=== PATIENT | male | born 1960 | race African-American/Black ===

== ENCOUNTER → 2017-09-15 | Outpatient (CLI) | payer OTHER, MEDICAID, MEDICARE | END | disposition home or self-care (01) | LOC: KCIC CT 11:11 | DX: R41.3 Other amnesia (principal) | CPT/HCPCS: 70450 ==

== ENCOUNTER → 2018-06-01 | Outpatient (CLI) | payer OTHER ==
[2018-04-03 07:00] VITALS: BP 117/66
[~2018-06-01] MED LIST: ALBU25PO2 MC; AMIO200T4 PO; ASPI-630 PO; CETI10CA PO; CHOL100017 PO; ESOM40CA PO; FLUT16SP2 NS; FURO-68 PO; GUAI600T47 PO; IPRA3AMP29 IH; LEVO75TA PO; LEVO88TA4 PO; MONT10TA6 PO; MULT-658 PO; PRED1TAB3 PO; SIMV40TA PO
--- NOTE | 2018-06-01 18:55 | RAD ---
CHEST PA LATERAL CLINICAL INDICATION: SOA AND INFILTRATES COMPARISON: 03/31/2018 FINDINGS: Heart is normal in size. Lungs are hyperinflated. Diffuse bilateral interstitial opacities are seen. Fullness is seen in the right hilum. No pneumothorax or large pleural effusion. Visualized bony thorax is within normal limits. IMPRESSION: 1. Findings of COPD. Superimposed atypical/viral infection or interstitial pulmonary edema. 2. Fullness in the right hilum may be secondary to hilar pneumonia. Underlying mass not ruled out. Follow-up imaging recommended after medical therapy to ensure resolution. Electronically signed by: Pawan Bell DO (06/01/2018 6:52 PM) [facility]
== END | disposition home or self-care (01) ==
LOC: RAD 17:24
PROVIDERS: ATTEND Internal Medicine Pulmonary Disease
DX: J44.9 Chronic obstructive pulmonary disease, unspecified (principal); J18.8 Other pneumonia, unspecified organism
CPT/HCPCS: 71046

== ENCOUNTER → 2018-07-28 | Outpatient (CLI) | payer OTHER ==
[2018-04-03 07:00] VITALS: BP 117/66
--- NOTE | 2018-07-28 11:16 | RAD ---
PA and lateral chest x-ray compared to similar study dated June 01, 2018 for shortness of breath. FINDINGS: Cardiomegaly is stable. There is fullness of the bonnie bilaterally and there are alveolar infiltrates in the perihilar regions, most notable in the medial lung bases bilaterally. These findings are worse than on the prior examination, and likely represent developing pulmonary edema or pneumonia. Lung apices are relatively spared. There is mild fluid within the fissures, but no large pleural effusions. IMPRESSION: 1. Perihilar airspace infiltrates most suggestive of developing pulmonary edema, though perhaps bilateral perihilar infectious pneumonia. Findings are worse than on June 01, 2018 but remain much improved compared to chest x-ray dated March 31, 2018. Electronically signed by: Obie Arrington MD (07/28/2018 11:13 AM) [id number]
== END | disposition home or self-care (01) ==
LOC: RAD 10:25
PROVIDERS: ATTEND Internal Medicine Pulmonary Disease
DX: I51.7 Cardiomegaly (principal)
CPT/HCPCS: 71046

== ENCOUNTER → 2020-03-06 | Outpatient (CLI) | payer OTHER ==
[2018-04-03 07:00] VITALS: BP 117/66
[~2020-03-06] MED LIST changes: -AMIO200T4 PO; +AMIO200T6 PO; -LEVO75TA PO; +LEVO75TA90 PO; +MONT10TA49 PO; -MONT10TA6 PO
--- NOTE | 2020-03-06 12:39 | RAD ---
EXAM: Chest, 2 views. HISTORY: Asthma exacerbation. COMPARISON: 07/28/2018 FINDINGS: 2 views of the chest are obtained. There is diffuse central predominant interstitial infilt rate superimposed on chronic interstitial changes. There is no pleural effusion, consolidation or pne umothorax. There is a stable prominent cardiac silhouette and enlarged central pulmonary vessels. IMPRESSION: 1. Central predominant interstitial infiltrate superimposed on chronic interstitial changes. 2. Stable prominent cardiac silhouette and prominent central pulmonary vessels. Electronically signed by: Chel Lomeli MD (03/06/2020 12:36 PM) [id number]
== END ==
LOC: RAD 12:12
PROVIDERS: ATTEND Internal Medicine
DX: J45.901 Unspecified asthma with (acute) exacerbation (principal)
CPT/HCPCS: 71046

== ENCOUNTER → 2020-03-26 | Outpatient (CLI) | payer OTHER ==
[2018-04-03 07:00] VITALS: BP 117/66
--- NOTE | 2020-03-26 16:44 | KCIC ---
CT scan of the chest without contrast 03/26/2020 CLINICAL HISTORY: Shortness of breath. Fibrosis. Asthma. CHF. TECHNIQUE: Unenhanced, contiguous, 5 mm axial sections were obtained through the chest and upper abdo men. One or more of the following individualized dose reduction techniques were utilized for this study: 1. Automated exposure control. 2. Adjustment of the mA and/or kV according to patient size. 3. Use of iterative reconstruction technique. FINDINGS: Comparison is made to patient's PA and lateral chest radiographs dated 03/06/2020. Additional comparison is made to patient's previous CT scan of the chest dated 03/27/2018. There is mild to moderate cardiomegaly. The thoracic aorta is mildly tortuous but tapers normally. Li mark reactive mediastinal lymph nodes are seen which measure 5 mm to 1 cm in size. They have not sign ificantly changed. No pneumothorax or pleural effusion is seen. No area of honeycombing is noted. No bronchiectasis is s een. Patchy areas of atelectasis and/or infiltrate are seen involving left lower lobe. The pleural effusions and bilateral perihilar infiltrates seen on the patient's previous CT scan have resolved. Images through the upper abdomen are within normal limits. Very mild S-shaped curvature of the thorac olumbar spine is seen. Degenerative changes are seen involving the thoracic spine. IMPRESSION: 1. Mild to moderate cardiomegaly. 2. Patchy areas of atelectasis and/or infiltrate are seen involving the left lower lobe. 3. The pleural effusions and bilateral perihilar infiltrates seen on the patient's previous CT scan have resolved. Electronically signed by: Francisco Mattson MD (03/26/2020 4:42 PM) [id number]
== END ==
LOC: KCIC CT 13:59
PROVIDERS: ATTEND Internal Medicine Pulmonary Disease
DX: J90 Pleural effusion, not elsewhere classified (principal); I25.10 Atherosclerotic heart disease of native coronary artery without angina pectoris; J45.909 Unspecified asthma, uncomplicated; J84.10 Pulmonary fibrosis, unspecified; M43.8X5 Other specified deforming dorsopathies, thoracolumbar region; M47.815 Spondylosis without myelopathy or radiculopathy, thoracolumbar region
CPT/HCPCS: 71250

== ENCOUNTER 2021-03-08 21:20 | Emergency (ER) | payer OTHER ==
[~2021-03-08] VITALS: Ht 170.2 cm; Wt 72.7 kg
[~2021-03-08 21:20] MED LIST changes: +AMIO200T53 PO; -AMIO200T6 PO
[2021-03-08] MEDS ORDERED: DEXAMETHASONE SOD PHOS 20 MG/5 ML VIAL. IV ONE ×2 (21:30→23:15)
--- NOTE | 2021-03-08 21:44 | PHYS DOC ---
Past Medical History Past Medical History: High Cholesterol, Hypothyroid, Hypotension, Other Additional Past Medical Histor: downs syndrome,seasonal allergies, vitiligo, sleep apnea Past Surgical History: Other Additional Past Surgical Histo: trach placement and removal Smoking Status: Never Smoker Alcohol Use: None Drug Use: None General Adult EDM: Chief Complaint: SYNCOPE HPI: HPI: 60 yo M PMH asthma and down syndrome, presents to the [facility] with concern for syncopal episode that lasted for approximately 20 seconds while patient was lying on the couch. EMS reports glucose was in normal range and that pt was seen at within the past few months for syncope. Hx limited due to patient's Down syndrome. Pt states "I haven't felt good since I ate cold meat." I spoke to sister (DPGIANFRANCO), Ariadne (who confirmed 2 patient identifiers). Pt had pneumonia in 2019 at the beginning of the covid 19 pandemic. Presented to [facility] at that time because he passed out while in a vehicle. 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 Has had moderna vaccine plus his booster. Told sister he has had a headache for the past week. INR was "7.something," this week. PMH-Dr. Bell. Follows with cardiology, Dr. Jeremiah Chacon. Review of Systems: Review of Systems: Review of systems limited due to patient's Down syndrome Heart Score: C/O Chest Pain: No Risk Factors: Risk Factors: DM, Current or recent (<one month) smoker, HTN, HLP, family history of CAD, obesity. Risk Scores: Score 0 - 3: 2.5% MACE over next 6 weeks - Discharge Home Score 4 - 6: 20.3% MACE over next 6 weeks - Admit for Clinical Observation Score 7 - 10: 72.7% MACE over next 6 weeks - Early Invasive Strategies Current Medications: Current Medications Medications (Trade) Dose Ordered Sig/Hudson Start Time Stop Time Status Last Admin Dose Admin Dexamethasone Sodium Phosphate (Decadron) 10 mg 1X ONCE 03/08/21 21:30 03/08/21 21:34 DC Allergies: Allergies: Allergies Coded Allergies Type Severity Reaction Last Updated Verified No Known Drug Allergies 08/14/14 No Physical Exam: PE: Constitutional: Well developed, well nourished, no acute distress, non-toxic appearance. HENT: Normocephalic, atraumatic, Eyes: EOMI, conjunctiva normal, no discharge. Neck: Normal range of motion, supple, JVD present bilaterally Cardiovascular: S1/2 present, regular rhythm, cannot appreciate any loud murmurs Lungs & Thorax: Speaking in full sentences, bilateral equal chest rise, increased work of breathing w/coarse breath sounds and bilateral wheezing, cough present Abdomen: soft, no tenderness, Skin: Warm, dry, no erythema, no rash, vitiligo present Extremities: No tenderness, no cyanosis, equal +1 lower extremity edema Neurologic: Alert, normal motor function, normal sensory function, no focal deficits noted. [] Psychologic: Affect normal, judgement normal, mood normal. [] EKG: EKG: Sinus rhythm with APC, 88 bpm, right axis deviation, QTC 468, T wave inversion V2 and V3, no ST elevation or ST depression Radiology/Procedures: Radiology/Procedures: IMAGING REPORT Signed PATIENT: ALEJANDRO MARINELLI ACCOUNT: [id number] : 1960 LOCATION: ER AGE: 60 SEX: M EXAM STATUS: REG ER ORD. PHYSICIAN: CLAUDIA REVELES DO REASON: soa PROCEDURE: PORTABLE CHEST 1V Exam: Chest one view INDICATION: Short of air TECHNIQUE: Frontal view of the chest Comparisons: 03/06/2020 FINDINGS: The cardiomediastinal silhouette and pulmonary vessels are within normal limits. Patchy bilateral airspace disease. No pleural effusion. IMPRESSION: Extensive patchy bilateral airspace disease favored to be infectious or inflammatory in etiology. Electronically signed by: Rome Pantoja MD (03/08/2021 10:03 PM) [facility] DICTATED and SIGNED BY: ROME PANTOJA MD DATE: 03/08/21 [id number] Course & Med Decision Making: Course & Med Decision Making Pertinent Labs and Imaging studies reviewed. (See chart for details) Concern for syncope in the setting of asthma exacerbation and atypical pneumonia. Patient presented to the ED with increased work of breathing, coarse breath sounds, wheezing and JVD. On reevaluation patient requesting to sleep- have lights and TV turned off. Patient with no further JVD, wheezing and breath sounds are now clear. BMP consistent with similar level from 2019. D-dimer within normal limits. INR on Coumadin is 2.4. Troponin is negative. Rapid COVID was negative-this was ordered prior to knowing patient's vaccination status and speaking with sister. Patient with no increased work of breathing. No recurrent syncope while in the emergency department. No neurologic deficits. Will prescribe azithromycin, Medrol Dosepak and albuterol inhaler. Will discharge home with strict ED return precautions were given for increased work of breathing, syncope, chest pain or neurologic deficit. Encouraged urgent outpatient follow-up with PMD for reevaluation and deputy clerk for full syncope evaluation. Life-threatening processes were considered but are low suspicion at this time, given history, physical exam and ED workup. Pt was educated on all prescription medications and adverse effects. All patient's questions were answered and pt was stable at time of discharge. Life/limb-threatening differential includes but is not limited to, abdominal aortic aneurysm, aortic dissection, acute coronary syndrome, anemia, valvular disorder, cerebrovascular accident, drug overdose or toxidrome, arrhythmia, prolonged QT syndrome, hemorrhage, heat illness, intracranial hemorrhage, infection including meningitis/encephalitis/sepsis/toxic shock/myocarditis, vertebrobasilar insufficiency, seizure, medication adverse event, illicit drug use, electrolyte disorder I have spoken with the patient and/or caregivers. I explained the patient's condition, diagnoses and treatment plan based on the information available to me at this time. I have answered the patient and/or caregiver's questions and addressed any concerns. The patient and/or caregivers have a good understanding of patient's diagnosis, condition and treatment plan as can be expected at this point. Vital signs have been stable. Patient's condition is stable and appropriate for discharge from the emergency department. Patient will pursue further outpatient evaluation with primary care physician or other designated or consulting physician as outlined in the discharge instructions. The patient and/or caregivers are agreeable to this plan of care and follow-up instructions have been explained in detail. The patient and/or caregivers have received these instructions in written form and have expressed an understanding of the discharge instructions. The patient and/or caregivers are aware that any significant change of condition or worsening of symptoms should prompt immediate return to this or the closest emergency department or call to 911. Caro Disclaimer: Caro Disclaimer: This electronic medical record was generated, in whole or in part, using a voice recognition dictation system. Departure Departure Impression: Primary Impression: Syncope and collapse Additional Impressions: Atypical pneumonia Asthma attack Disposition: HOME / SELF CARE / HOMELESS Condition: STABLE Referrals: MARIA GUADALUPE BELL MD (PCP) Follow-up with your primary care physician in 24 to 48 hours OR FOLLOW UP WITH FAMILY MEDICINE: [address], [address] [place] [address] Patient Instructions: Asthma Attacks, Prevention, Pneumonia, Adult, Syncope Additional Instructions: FOLLOW UP WITH PULMONOLOGY: FOR DEFINITIVE MANAGEMENT of asthma [facility] [address] [place] [address] FOLLOW UP WITH CARDIOLOGY: FOR DEFINITIVE MANAGEMENT of syncope [facility] [address] [place] [address] [place] [address] EMERGENCY DEPARTMENT GENERAL DISCHARGE INSTRUCTIONS Thank you for coming to [facility] Emergency Department (ED) today and trusting us with you care. We trust that you had a positive experience in our Emergency Department. If you wish to speak to the department management, you may call the Director at [phone]. YOUR FOLLOW UP INSTRUCTIONS ARE FOLLOWS: 1. Do you have a private Doctor? If you do not have a private doctor, please ask for a resource list of physicians or clinics that may be able to assist you with follow up care. 2. The Emergency Physicain has interpreted your x-rays. The X-Ray specialist will also review them. If there is a change in the findings, you will be notified in 48 hours when at all possible. 3. A lab test or culture has been done, your results will be reviewed and you will be notified if you need a change in treatment. ADDITIONAL INSTRUCTIONS AND INFORMATION: 1. Your care today has been supervised by a physician who is specially trained in emergency care. Many problems require more than one evaluation for a complete diagnosis and treatment. We recommend that you schedule your follow up appointment as recommended to ensure complete treatment of you illness or injury. If you are unable to obtain follow up care and continue to have a problem, or if your condition worsens, we recommend that you return to the ED. 2. We are not able to safely determine your condition over the phone nor are we able to give sound medical advice over the phone. For these safety reasons, if you call for medical advice we will ask you to come to the ED for further evaluation. 3. If you have any questions regarding these discharge instructions please call the ED at [phone]. SAFETY INFORMATION: In the interest of safety, wellness, and injury prevention; we encourage you to wear your sealbelt, if you smoke; quite smoking, and we encourage family to use a protective helmet for bicycling and other sporting events that present an increased risk for head injury. IF YOUR SYMPTOMS WORSEN OR NEW SYMPTOMS DEVELOP, OR YOU HAVE CONCERNS ABOUT YOUR CONDITION; OR IF YOUR CONDITION WORSENS WHILE YOU ARE WAITING FOR YOUR FOLLOW UP APPOINTMENT; EITHER CONTACT YOUR PRIMARY CARE DOCTOR, THE PHYSICIAN WHOSE NAME AND NUMBER YOU WERE GIVEN, OR RETURN TO THE ED IMMEDIATELY. Scripts Albuterol Sulfate (VENTOLIN HFA INHALER) 18 Gm Hfa.aer.ad 2 PUFF INH QID for FOR ASTHMA, #1 INHALER 0 Refills Prov: CLAUDIA REVELES DO 03/09/21 Azithromycin (ZITHROMAX) 250 Mg Tablet 1 PKG PO UD, #6 TAB Prov: CLAUDIA REVELES DO 03/09/21 Methylprednisolone (MEDROL) 4 Mg Tab.ds.pk 1 PKG PO UD for inflammation, #1 PKG Prov: CLAUDIA REVELES DO 03/09/21 CLAUDIA REVELES DO Mar 08, 2021 21:44
[2021-03-08 22:05] LABS: BASO % 1 % (0-3); EOS % 0 % (0-3); HEMATOCRIT 33.6 % (39.0-53.0); HEMOGLOBIN 11.1 g/dL (13.0-17.5); LYMPH # 0.2 x10^3/uL (1.0-4.8); LYMPH % 3 % (24-48); MEAN CORPUSCULAR HEMOGLOBIN 32 pg (25-35); MEAN CORPUSCULAR HGB CONC 33 g/dL (31-37); MEAN CORPUSCULAR VOLUME 96 fL (79-100); MONO # 0.6 x10^3/uL (0.0-1.1); MONO % 9 % (0-9); NEUT # 5.7 x10^3/uL (1.8-7.7); NEUT % 88 % (31-73); PLATELET COUNT 265 x10^3/uL (140-400); RED BLOOD COUNT 3.49 x10^6/uL (4.30-5.70); RED CELL DISTRIBUTION WIDTH 16.7 % (11.5-14.5); WHITE BLOOD COUNT 6.5 x10^3/uL (4.0-11.0)
--- NOTE | 2021-03-08 22:05 | RAD ---
Exam: Chest one view INDICATION: Short of air TECHNIQUE: Frontal view of the chest Comparisons: 03/06/2020 FINDINGS: The cardiomediastinal silhouette and pulmonary vessels are within normal limits. Patchy bilateral airspace disease. No pleural effusion. IMPRESSION: Extensive patchy bilateral airspace disease favored to be infectious or inflammatory in etiology. Electronically signed by: Rome Warren MD (03/08/2021 10:03 PM) [facility]
[2021-03-08 22:39] LABS: % BANDS 6 % (0-9); % LYMPHS 2 % (24-48); % MONOS 5 % (0-10); % SEGS 87 % (35-66); PLT ESTIMATE ADEQUATE (ADEQUATE)
[2021-03-08] MEDS ORDERED: IPRATRPIUM/ALBUTEROL 0.5/2.5MG 3 ML NEBU. NEB ONE (23:15)
[2021-03-08 23:50] LABS: CREATININE 1.2 mg/dL (0.7-1.3); GFR 74.5; POTASSIUM 4.1 mmol/L (3.5-5.1)
[2021-03-08 23:56] LABS: ALBUMIN 2.8 g/dL (3.4-5.0); ALBUMIN/GLOBULIN RATIO 0.5 (1.0-1.7); MAGNESIUM 2.3 mg/dL (1.8-2.4); TOTAL BILIRUBIN 0.7 mg/dL (0.2-1.0); TOTAL PROTEIN 8.1 g/dL (6.4-8.2)
[2021-03-09 01:30] VITALS: BP 94/53
[2021-03-09] MEDS ORDERED: METH4TAB2 PO (01:50)
[2021-03-09] MEDS ORDERED: AZIT250T PO (01:50)
[2021-03-09] MEDS ORDERED: VENTOLIN HFA18 GM INH (01:50)
--- NOTE | 2021-03-09 03:54 | EKG ---
[facility] [address] [place] [address] Test Date: 2021-03-08 Test Time: 22:12:26 Pat Name: ALEJANDRO MARINELLI Department: Room: Gender: M Reproductive Surgeon: : 1960 Requested By: CLAUDIA REVELES Order Number: [id number] Reading MD: Measurements Intervals [place] Rate: 88 P: 90 CT: 136 QRS: 119 QRSD: 94 T: 45 QT: 384 QTc: 468 Interpretive Statements SINUS RHYTHM ATRIAL PREMATURE COMPLEX(ES) ABNORMAL RIGHT AXIS DEVIATION LOW LIMB LEAD VOLTAGE QRS(T) CONTOUR ABNORMALITY CONSIDER INFERIOR MYOCARDIAL DAMAGE T ABNORMALITY IN ANTERIOR LEADS ABNORMAL ECG RI6.01 No previous ECG available for comparison
--- NOTE | 2021-03-11 11:46 | NUR ---
IP: Informed pt of negative covid test. He and his sister verbalized understanding.
== END 2021-03-09 02:50 | disposition home or self-care (01) ==
LOC: ER 21:20
DX: J18.9 Pneumonia, unspecified organism (principal); Z20.822 Contact with and (suspected) exposure to COVID-19; R55 Syncope and collapse; E78.00 Pure hypercholesterolemia, unspecified; E03.9 Hypothyroidism, unspecified; J45.909 Unspecified asthma, uncomplicated
CPT/HCPCS: 36415; 71045; 80053; 83735; 83880; 84484; 85007; 85025; 85379; 85610; 85730; 87426; 93005; 94640; 96374; 99285; J1100; U0003; U0005